=== PATIENT | male | born 1930 | race Caucasian/White ===

== ENCOUNTER → 2017-03-30 10:21 | Outpatient (CLI) | payer MEDICARE, OTHER ==
[2016-09-02 12:18] VITALS: BMI 36.1
[~2017-03-30 10:21] MED LIST: ACETAMINOPHEN500 M1 PO; AMARYL1 MG PO; AMBIEN10 MG; ARAVA10 MG; AZULFIDINE500 MG PO; BAYER CHEWABLE81 MG PO; BREO; BYSTOLIC2.5 MG PO; CARAFATE1 G PO; FLOMAX0.4 MG PO; GLIMEPIRIDE1 MG PO; GLIMEPIRIDE2 MG PO; IPRAT-ALBUT 0.5-3 ML UPD; K-TAB10 MEQ PO; LASIX80 MG PO; LISINOPRIL5 MG PO; LOPRESSOR25 MG PO; PLAQUENIL200 MG PO; PREDNISONE5 MG PO; PROTONIX20 MG PO; SYMBICORT 16010.2 GM INH; ULTRAM ER200 MG PO; Ultram; ZOCOR20 MG PO; [UNRECOGNIZED DRUG - REMARK] PO; [UNRECOGNIZED DRUG - REMARK] PO
== END | disposition home or self-care (01) ==
LOC: D.CT 10:21
DX: I71.4 Abdominal aortic aneurysm, without rupture (principal)

== ENCOUNTER → 2017-10-04 08:14 | Outpatient (CLI) | payer MEDICARE, OTHER ==
[2016-09-02 12:18] VITALS: BMI 36.1
== END | disposition home or self-care (01) ==
LOC: D.US 08:14
DX: I71.4 Abdominal aortic aneurysm, without rupture (principal)

== ENCOUNTER → 2018-04-11 07:24 | Outpatient (CLI) | payer MEDICARE, OTHER ==
[2016-09-02 12:18] VITALS: BMI 36.1
== END | disposition home or self-care (01) ==
LOC: D.US 04-10 14:30
DX: I71.4 Abdominal aortic aneurysm, without rupture (principal)

== ENCOUNTER → 2018-08-01 13:59 | Outpatient (CLI) | payer MEDICARE, OTHER ==
[2016-09-02 12:18] VITALS: BMI 36.1
== END | disposition home or self-care (01) ==
LOC: D.CT 13:59
DX: I71.4 Abdominal aortic aneurysm, without rupture (principal)

== ENCOUNTER 2018-09-05 10:29 | Day surgery (SDC) | payer MEDICARE, OTHER ==
[~2018-09-05] VITALS: Ht 179.1 cm; Wt 116.4 kg
--- NOTE | ~2018-09-05 | OP ---
PATIENT NAME: TY MONTANA MEDICAL RECORD: [id number] :34 [facility] AD[facility] DATE: SURGEON: MOY GIRON MD DATE OF OPERATION: 09/05/2018 PROCEDURE: EGD with biopsy. REFERRING PHYSICIAN: Spencer Draper MD INDICATIONS: Mr. Montana is a delightful 88-year-old gentleman who is referred for further evaluation of anemia. He has history of gastric angioectasias and gastric ulcers. He has been receiving iron infusions on the direction of Dr. Vernon Tejada and has also required blood transfusions. His stools have been Hemoccult negative. His last EGD on 09/02/2016 shows small hiatal hernia; gastric angioectasia, status post ablation; gastritis; and duodenal lipoma (referred for further evaluation of microcytic anemia. He has a history of chronic iron-deficiency anemia). He had a colonoscopy in December 2014 with findings showing colon polyps, mild sigmoid and descending colonic diverticulosis, and mild internal hemorrhoids. He presents for outpatient EGD to further evaluate his anemia. PREMEDICATIONS: Total IV anesthesia (propofol 100 mg); history of coronary artery disease, diabetes mellitus, COPD. INSTRUMENT: Pro V&V video gastroscope. PROCEDURE AND FINDINGS: After receiving informed consent, Mr. Montana's posterior pharynx was anesthetized with Cetacaine spray. He was placed in left lateral decubitus position and sedated as per anesthesia. After achieving adequate level of sedation, gastroscope was introduced per orally and advanced to duodenum without difficulty. The esophageal mucosa was without erythema or ulcers and appeared normal down the GE junction. Small hiatal hernia was noted. Gastric mucosa was notable for a pyloric channel ulcer, which was friable. It had small white base, was semi-circumferential in nature. Antral biopsies were obtained to rule out Helicobacter pylori. No lesions were seen in the body of the stomach nor along the incisura in cardia or fundus. Pylorus was patent and competent. Duodenal mucosa was without erythema or ulcers, appeared normal through the second portion. Biopsies were taken from the second portion of duodenum to rule out celiac disease. Gastroscope was then withdrawn. Mr. Montana tolerated the procedure well. No immediate complications. ASSESSMENT: 1. Small hiatal hernia. 2. Small pyloric channel ulcer, friable, probable source of [id number] anemia. RECOMMENDATIONS: 1. Followup histopathology. 2. Omeprazole 20 mg p.o. b.i.d. 3. Avoid nonsteroidal anti-inflammatory drugs. 4. Followup EGD in 2 months. TRANSINT:[id number] Voice Confirmation ID: [id number] DOCUMENT ID: [id number] OPERATIVE REPORT [id number] TY MONTANA TERRI MD at 1254 CC: SPENCER DRAPER MD, JANINA ORTIZ and SERAFIN TEJADA MD [id number] DICTATION DATE: 09/05/18 1316 MATERIAL CONTROL SUPERVISOR: 09/05/18 1357 [facility] 09/05/18 [facility] [address] [place] [address]
[2018-09-05 10:55] LABS: ANION GAP 13.5 mmol/L (8-16); CALCIUM 8.7 mg/dL (8.5-10.1); CARBON DIOXIDE 29.4 mmol/L (21.0-32.0); CREATININE - SERUM 1.3 mg/dL (0.6-1.3); POTASSIUM - SERUM 4.9 mmol/L (3.5-5.1)
[2018-09-05 11:03] LABS: HEMATOCRIT 31.9 % (42.0-54.0); MCH 30.9 pg (26.0-34.0); MCHC 31.3 g/dL (31.0-37.0); MCV 98.5 fL (80.0-100.0); MEAN PLATELET VOLUME 9.2 fL (7.4-10.4); RBC 3.24 10x6/uL (4.20-6.10); RDW 14.7 % (11.5-14.5); WBC 6.9 10x3/uL (4.8-10.8)
[2018-09-05] MEDS ORDERED: MELATONIN 3 MG1 TAB PO (11:37)
[2018-09-05 12:02] VITALS: BP 142/80; Ht 179.1 cm; Wt 116.4 kg
== END 2018-09-05 14:11 | disposition home or self-care (01) ==
LOC: D.OPS 10:29
PROVIDERS: Anesthesiology
DX: D64.9 Anemia, unspecified (principal); K25.9 Gastric ulcer, unspecified as acute or chronic, without hemorrhage or perforation

== ENCOUNTER 2018-10-27 10:06 | Day surgery (SDC) | payer MEDICARE, OTHER ==
[2018-10-27 10:36] LABS: BASOPHILS 0.3 % (0-2); EOSINOPHILS 4.1 % (0-7); HEMATOCRIT 30.6 % (42.0-54.0); HEMOGLOBIN 9.5 g/dL (13.5-17.5); IMMATURE GRANULOCYTES 0.2 % (0-5); LYMPHOCYTES 17.7 % (15-50); MEAN PLATELET VOLUME 8.9 fL (7.4-10.4); MONOCYTES 11.2 % (2-11); NEUTROPHILS 66.5 % (40-80); PLATELET COUNT 184 10x3/uL (130-400); RBC 3.06 10x6/uL (4.20-6.10); RDW 13.9 % (11.5-14.5); WBC 5.9 10x3/uL (4.8-10.8)
[2018-10-27 10:43] LABS: ALBUMIN 3.1 g/dL (3.4-5.0); ALKALINE PHOSPHATASE 52 U/L (46-116); ALT (SGPT) 20 U/L (10-68); BILIRUBIN - TOTAL 0.19 mg/dL (0.2-1.3); CALC OSMOLALITY 276 mosm/kg (275-300); CALCIUM 8.4 mg/dL (8.5-10.1); CARBON DIOXIDE 33.2 mmol/L (21.0-32.0); CHLORIDE - SERUM 101 mmol/L (98-107); GLUCOSE 100 mg/dL (74-106); POTASSIUM - SERUM 4.9 mmol/L (3.5-5.1); PROTEIN - SERUM 7.1 g/dL (6.4-8.2); SODIUM 138 mmol/L (136-145); UREA NITROGEN 15 mg/dL (7-18); eGFR NON AFRICAN AMERICAN 75 mL/min (90-120)
== END 2018-10-27 16:00 | disposition home or self-care (01) ==
LOC: D.OPS 10:06
PROVIDERS: Internal Medicine Gastroenterology
DX: K44.9 Diaphragmatic hernia without obstruction or gangrene (principal); K29.70 Gastritis, unspecified, without bleeding; K57.30 Diverticulosis of large intestine without perforation or abscess without bleeding; D12.2 Benign neoplasm of ascending colon; D12.3 Benign neoplasm of transverse colon; I71.4 Abdominal aortic aneurysm, without rupture; D50.9 Iron deficiency anemia, unspecified; I25.10 Atherosclerotic heart disease of native coronary artery without angina pectoris; J44.9 Chronic obstructive pulmonary disease, unspecified; E11.9 Type 2 diabetes mellitus without complications; Z01.812 Encounter for preprocedural laboratory examination

== ENCOUNTER → 2018-11-22 07:25 | Outpatient (CLI) | payer MEDICARE, OTHER ==
[2018-10-27 11:08] VITALS: BMI 36.3
[~2018-11-22 07:25] MED LIST changes: +BREO ELLIPTA 11 EACH INH; +MELATONIN 3 MG1 TAB PO; +ULTRAM50 MG PO
== END | disposition home or self-care (01) ==
LOC: D.RAD 11-02 10:00
DX: D50.9 Iron deficiency anemia, unspecified (principal); R19.7 Diarrhea, unspecified

== ENCOUNTER → 2018-12-26 13:20 | Outpatient (CLI) | payer MEDICARE, OTHER ==
[2018-10-27 11:08] VITALS: BMI 36.3
[~2018-12-26 13:20] MED LIST changes: +ASPIRIN EC81 M1 PO
== END | disposition home or self-care (01) ==
LOC: D.RT 13:20
DX: I71.4 Abdominal aortic aneurysm, without rupture (principal)

== ENCOUNTER 2019-01-02 12:49 | Inpatient (IN) | payer MEDICARE, OTHER ==
[~2019-01-02] VITALS: Ht 179.1 cm; Wt 113.4 kg
[~2019-01-02 12:49] MED LIST changes: -ASPIRIN EC81 M1 PO
[2019-01-04 14:44] LABS: INR 1.06 (0.85-1.17); PROTIME 13.3 SECONDS (11.6-15.0)
[2019-01-04 14:50] LABS: BASOPHILS 0.3 % (0-2); EOSINOPHILS 2.9 % (0-7); HEMATOCRIT 30.2 % (42.0-54.0); HEMOGLOBIN 9.6 g/dL (13.5-17.5); IMMATURE GRANULOCYTES 0.2 % (0-5); LYMPHOCYTES 27.8 % (15-50); MCH 30.2 pg (26.0-34.0); MCHC 31.8 g/dL (31.0-37.0); MEAN PLATELET VOLUME 9.3 fL (7.4-10.4); MONOCYTES 11.3 % (2-11); NEUTROPHILS 57.5 % (40-80); PLATELET COUNT 184 10x3/uL (130-400); RBC 3.18 10x6/uL (4.20-6.10); RDW 13.1 % (11.5-14.5); WBC 5.9 10x3/uL (4.8-10.8)
[2019-01-04 14:53] LABS: ALBUMIN 3.2 g/dL (3.4-5.0); ANION GAP 10.1 mmol/L (8-16); BILIRUBIN - TOTAL 0.15 mg/dL (0.2-1.3); CARBON DIOXIDE 30.2 mmol/L (21.0-32.0); CREATININE - SERUM 1.3 mg/dL (0.6-1.3); POTASSIUM - SERUM 5.3 mmol/L (3.5-5.1); PROTEIN - SERUM 6.6 g/dL (6.4-8.2)
[2019-01-04 15:22] LABS: APPEARANCE CLEAR (CLEAR); BILIRUBIN NEGATIVE (NEGATIVE); COLOR YELLOW (YELLOW); GLUCOSE NEGATIVE (NEGATIVE); KETONE NEGATIVE (NEGATIVE); NITRITE NEGATIVE (NEGATIVE); PROTEIN TRACE mg/dL (NEGATIVE); UROBILINOGEN NORMAL (NORMAL)
[2019-01-04 15:23] LABS: RED CELLS - URINE 0-5 /hpf (0-5); WHITE CELLS - URINE 0-5 /hpf (0-5)
[2019-01-04 15:24] LABS: AMORPHOUS SEDIMENT <1+ /lpf (NONE SEEN); EPITHELIAL CELLS 0-5 /hpf (0-5); GRANULAR CAST RARE /lpf (NONE SEEN); MUCUS <1+ /lpf (NONE SEEN)
[2019-01-08] VITALS (51 sets, daily range): BP systolic 108–161; BP diastolic 43–513; BMI 35.4
--- NOTE | 2019-01-08 13:11 | NUR ---
1135 PT ARRIVED TO ROOM FROM OR, PLACED ON VENT BY RT, ETT 8.0 AT 24 AT LIP, PLACED ON MONITORING EQUIPMENT AND ALARMS SET, L SUBCLAVIAN CVL DRESSING CDI WITH NS RATE CHANGED TO 75ML/HR, INITIATED NITRO TITRATED TO BP, BEGAN CLEVIPREX WHEN NITRO 30ML/HR THEN BEGAN TO WEAN NITRO, SEE IV FLOWSHEET FOR CURRENT RATED, R GROIN AND LEFT UUPPER GROIN INCISION SITES CDI,S OFT TO PALPATE, NO SIGNS OF BLEEDING, L RADIAL A LINE ZEROED, GOOD WAVEFORM, WRIST PROTECTOR IN PLACE, CRITICORE DRAINING ELMO URINE, WRIST RESTRAINTS PLACED UPON ARRIVAL, HR IRREGULAR AFTER CXR, UP TO 200 SINUS TACH, THEN AGAIN INTERMITTENLY, DR ORTIZ AWWARE, AFTER CONTINUED TACHYCARDIA, EKG DONE AND CONFIRMED SINUS TACH WITH R BBB, NOTIFIED DR MAHONEY NURSE NAVI WITH NO NEW ORDERS, PT AWAKE AND ABLE TO FOLLOW COMMANDS NO NEEDS NOTED, CONTINUES 1:1 AT THIS TIME
--- NOTE | 2019-01-08 14:10 | NUR ---
HR CONTINUING TO BE IRREGULAR, SUSTAINS IN 100-120 BUT ELEVATING HIGH 220, NO SIGNS OF BLEEDING, SITES SOFT, PULSES PALPABLE, PT CONTINUALLY GESTURING TO ETT AND AGITATED ABOUT ITS REMOVAL, DR MAHONEY NURSE PATRICK NOTIFIED
--- NOTE | 2019-01-08 15:26 | NUR ---
CALLED DR ORTIZ AND NOTIFIED OF ABGS, NIF,VITAL, ORDERS TO EXTUBATE PER PROTOCOL, EXTUBATED BY RT AND WRIST RESTRAINTS REMOVED 151, AIRPORT DRIVER INITIATED AND EDUCATED PT ON HOW TO USE, INSTRUCTED ON COUGH/DEEP BREATHING WELL
--- NOTE | 2019-01-08 17:06 | NUR ---
PT COMPLAINING OF "UNBEARABLE" BACK PAIN, STATES HE HAS CHRONIC BACK PAIN, SPOKE WITH DR ORTIZ AND NEW ORDERS FOR TORADOL AND TRAMADOL
--- NOTE | 2019-01-08 18:00 | NUR ---
REPORT GIVEN TO SYLVIA MANDEL
--- NOTE | 2019-01-08 19:00 | NUR ---
Shift assessment complete. Pt is A&O x4, PERRLA, 3 mm, brisk reaction to light. He states that he is having 8/10 back pain that feels dull, chronic issue. Repositioned for comfort, massage to L lumbar region. Elevated ext on pillows. S1S2 audible, HR 106 sinus tach showing on monitor, tight parameters set. RR even and unlabored, clear breath sounds heard bilat throughout all lobes. NC on @ 3 L/min. ABD round and distended, soft to touch, no pain or tenderness. BS active x4. Criticore intact, stat lock placed on L leg. B/L groin dressings CDI, no signs of bleeding noted, soft to palpation. L A-line zeroed, good wave form showing on monitor. CVP zeroed, reading is 7. L subclavian CVL infusing NS @ 75 ml/hr, increased Cleviprex to 12 mg/hr due to SBP 151-160, Nitro gtt @ 43.33 mcg/min (13 ml/hr), Morphine POWER LINE INSTALLER, button in hand, education provided. IS use x10, maximal effort, 500. Instructed pt to use IS on every commercial, he stated that he understood. Call light in reach, bed in lowest position, he denies any further needs at this time. Will cont close observation from nurse's station.
--- NOTE | 2019-01-08 19:20 | NUR ---
Pt able to eat all of Jello with no signs of difficulty. Tolerating clear liquids.
--- NOTE | 2019-01-08 21:00 | NUR ---
Pt states that he has 8/10 back pain. Admin Toradol. Repositioned for comfort. VSS. on phone, password provided. Updated and answered all questions. OPERATIONAL METEOROLOGIST button and call light in reach, will cont with POC.
--- NOTE | 2019-01-08 23:00 | NUR ---
Reassessment complete. Pedal pulses palp. B/L groin dressings CDI, soft to palpation. Partial linen change provided, partial bed bath given. Pt tolerated well. Decreased Cleviprex per titration orders. RR even and unlabored, O2 sat 95%. IS use x10, 500 best effort. ESCAPEMENT MAKER and call light in reach, will cont with POC.
[2019-01-09] VITALS (57 sets, daily range): BP systolic 107–161; BP diastolic 38–75; Ht 179.1 cm; Wt 113.4 kg
--- NOTE | 2019-01-09 01:00 | NUR ---
Massage given to L lumbar region. Repositioned for comfort. VSS. Titrating Cleviprex per orders. WIRE STRETCHER button in reach. Bed alarm on, call light in reach.
--- NOTE | 2019-01-09 03:00 | NUR ---
Reassessment complete. VSS. Dressings to bilat groin are intact, no indication of hematoma formation or bleeding. Pedal pulses palp. Repositioned for comfort. Pt states that he is still having back pain. Admin PRN pain medication. Will cont to monitor closely.
--- NOTE | 2019-01-09 05:00 | NUR ---
Complete linen change provided. Bridged heels, SCDs on. VSS. Pt tolerated well. Will cont with POC.
--- NOTE | 2019-01-09 06:00 | NUR ---
SBP increased at this time. Titrating gtts as needed. Will cont to assess closely.
[2019-01-09 06:31] LABS: HEMOGLOBIN 9.2 g/dL (13.5-17.5); MCH 29.7 pg (26.0-34.0); MCHC 31.7 g/dL (31.0-37.0); MCV 93.5 fL (80.0-100.0); MEAN PLATELET VOLUME 9.3 fL (7.4-10.4); RBC 3.1 10x6/uL (4.20-6.10); RDW 14.5 % (11.5-14.5); WBC 10.2 10x3/uL (4.8-10.8)
--- NOTE | 2019-01-09 07:00 | NUR ---
REPORT RECIEVED FROM THE OFF GOING RN. SEE ASSESSMENT IN THE PTS FLOW SHEET. PT A&OX4. PT IN HIS BED. NORMAL SINUS-SINUS TACH 90-110 NOTED. LEFT SUBCLAVIAN CVL NOTED. SEE IV FLOW SHEET FOR DRUGS AND RATES. LEFT RADIAL MANUEL NOTED. DRESSING C/D/I. WRIST PROTECTOR ON. CAP REFILL <3 SECONDS. BILATERAL GROIN DRESSING C/D/I. SOFT TO PALPATATION. NO HEMATOMA NOTED. BILATEARL PULSES PALPABLE. WARM FEET WIITH <3 SECOND CAP REFILL. PT COMPLAINS OF LOWER BACK PAIN. PT HAS A HX OF CHRONIC BACK PAIN. "MY BACK IS KILLING ME. I HAVE BEEN LYING HERE AND I NORMAL MOVE AROUND FOR MY BACK. CAN I GET OOB?" DR DIANA BRIGHT. DR ORTIZ OK FOR THE PT TO GET OOB.
[2019-01-09 07:07] LABS: ANION GAP 12.2 mmol/L (8-16); CARBON DIOXIDE 26.3 mmol/L (21.0-32.0); CREATININE - SERUM 1.2 mg/dL (0.6-1.3); POTASSIUM - SERUM 4.5 mmol/L (3.5-5.1)
--- NOTE | 2019-01-09 08:00 | NUR ---
PT ASSISTED OOB AND INTO HIS BEDSIDE CHAIR. PT WEAK BUT TOLERATED TRANSFER WELL. PT STATED THAT HE USES A WALKER AT HOME. PT STATED THAT HIS BACK IMMIDIATLY FEELS BETTER. NO COMPLAINTS OF PAIN AT THIS TIME. BREAKFAST TRAY PROVIDED FOR THE PT. CALL LIGHT IN REACH. WILL CONT POC.
--- NOTE | 2019-01-09 08:29 | NUR ---
CLEVIPREX AND NITRO TITRATED DOWN FOR BP. CLEVIPREX OFF. SEE IV FLOW SHEET.
--- NOTE | 2019-01-09 10:58 | NUR ---
10 CC REMOVED FROM FC BULB AND THE CATHETER WAS DC'D PER ORDERS. URINAL PROVIDED AND INSTRUCTED TO REPORT URINARY RETENTION. MANUEL DC'D PER ORDERS. CATH TIP INTACT. DRESSING APPLIED. PT TOLERATED WELL. WILL CONT POC.
--- NOTE | 2019-01-09 11:00 | NUR ---
NITRO AND CLIVIPREX DC'D. VSS AT THIS TIME. WILL CONT POC.
--- NOTE | 2019-01-09 11:08 | NUR ---
WIRE FRAME MAKER DISCONTIUNED WITH 5ML REMAINING. WASTED IN THE SINK WITH PAOLO RN A WITTNESS.
--- NOTE | 2019-01-09 13:36 | OP ---
PATIENT NAME: TY SAUNDERS MEDICAL RECORD: [id number] :34 LOCATION:[facility] ADMISSION DATE:01/08/19 SURGEON: GENE CHAVARRIA MD DATE OF OPERATION: 01/08/2019 OSS ARCHITECT NOTE PROCEDURE NOTE OSS ARCHITECT SURGEON: Gene Chavarria MD I participated in the placement of the bifurcated main body and each limb extension. Both femoral arteries were repaired primarily with a small localized 1-2 mm dissection utilizing interrupted 6-0 Prolene with resultant good flow and good hemostasis, both groins irrigated thoroughly with antibiotic irrigation and closed in 3 layers including subcuticular and Dermabond. Doppler dorsalis pedis and posterior tibial pulses in operating room. TRANSINT:[id number] Voice Confirmation ID: [id number] DOCUMENT ID: [id number] GENE CHAVARRIA MD at 1336 CC: [id number] DICTATION DATE: 01/08/19 1624 DURABLE MEDICAL EQUIPMENT REPAIRER: 01/08/19 2224 ADM IN [facility] [address] [place] [id number]
--- NOTE | 2019-01-09 13:56 | NUR ---
UP IN CHAIR AT THIS TIME. NO ACUTE DISTRESS NOTED. EYES CLOSED, AWAKENS EASILY WHEN SPOKEN TO. WILL CONTINUE PLAN OF CARE.
--- NOTE | 2019-01-09 14:24 | NUR ---
PT STOOD UP WITH PHYSICAL THERAPY AT THIS TIME, NOTED INCONTINENT VERY SMALL BOWEL MOVEMENT - LIQUID BROWN, AND SMALL AMOUNT VOID TO GROUND. ALSO NOTED 75ML URINE IN TO URINAL. PT CLEANED UP AT THIS TIME, JANIE CARE PROVIDED, PARTIAL LINEN CHANGE PROVIDED. NO ACUTE DISTRESS NOTED. WILL CONTINUE PLAN OF CARE.
--- NOTE | 2019-01-09 15:16 | NUR ---
[facility] CONFIRMED WITH PT AND PTS STATING THAT IS THE PHARMACY WHICH THEY USE.
--- NOTE | 2019-01-09 17:10 | NUR ---
UP IN CHAIR BESIDE BED EATING SUPPER AT THIS TIME. NO ACUTE DISTRESS NOTED. PT COMPLAINT OF SORE THROAT, CURRENTLY RECIVEDING LOZENGE PRN FOR SORE THROAT WELL PRN ULTRAM FOR DISCOMFORT. CALL LIGHT IN REACH. WILL CONTINUE PLAN OF CARE.
--- NOTE | 2019-01-09 18:04 | NUR ---
PT ASSISTED BACK TO BED. NOTED INCONTINENT VOID BEFORE TRANSFERRING, JANIE CARE PROVIDED ALONG WITH PARTIAL LINEN CHANGE. PT TRASNFERRED VIA MAX X 2 PERSON ASSIST. PT LYING IN BED WATCHING TV AT THIS TIME. NO ACUTE DISTRESS NOTED. WILL CONTINUE PLAN OF CARE.
--- NOTE | 2019-01-09 18:25 | NUR ---
TEMP 101.0 DR ORTIZ NOTIFIED OF THIS, STATED TO KEEP HAVING PT USE THE IS. PT CURRNTLY PULLING AT 500 ON IS. WILL CONTINUE TO QHR ENCOURAGE PT TO USE IS. WILL CONTINUE PLAN OF CARE.
--- NOTE | 2019-01-09 19:00 | NUR ---
Shift assessment complete. Pt is A&O x4, he states that his throat is sore and hurting, lozenge is on his gown. Complete linen change provided. S1S2 audible, HR 110, sinus tach. RR even and unlabored, clear lung sounds heard bilat through most lobes, diminished at bases. O2 sat 99%, NC on @ 2 L/min. ABD round and soft to touch, BS active x4. L subclavian CVL S/L. L radial dressing CDI. L&R groin dressings CDI, soft to palpation, no signs of bleeding noted. Radial and pedal pulses palp, pt states he has good sensation in all ext. Repositioned for comfort. IS use x10 with weak effort. Educated pt on the benefits of performing the exericse with good effort. He stated that he understands, best pulled 450. Call light in reach, bed alarm on, pt is in sight of nurse's station. Tight parameters set on ICU monitor. Will cont with POC.
--- NOTE | 2019-01-09 19:07 | MORECARE ---
CASE MANAGEMENT DISCHARGE SUMMARY PATIENT: TY SAUNDERS UNIT: [id number] ADM DATE: 01/08/19 AGE: 88 : 32 SEX: M [facility] AUTHOR: MEG JANE PHYSICIAN: REFERRING PHYSICIAN: JANINA ORTIZ MD DATE OF SERVICE: 01/09/19 Discharge Plan Patient Name: [facility]Y SAUNDERS [facility] [facility] 1930 Planned Disposition: Home Anticipated Discharge Date: Discharge Date: Expected LOS: Initial Reviewer: [email or web address] Initial Review Date: 01/09/2019 Generated: 01/09/19 8:06 pm DCPIA - Discharge Planning Initial Assessment Updated by [id number]: Joselin Lam on 01/09/19 7:03 pm * Is the patient Alert and Oriented? Yes * How many steps to enter\exit or inside your home? * PCP SVETA PANTOJA * Pharmacy [facility] * Preadmission Environment Home with Family * ADLs Independent * Other Equipment WALKER WITH SEAT, LIFT CHAIR, HANDBAR IN SHOWER * List name and contact numbers for known caregivers / representatives who currently or will assist patient after discharge: DIANA SAUNDERS - SPOUSE- [phone], * Verbal permission to speak to the caregivers and representatives has been obtained from the patient. Yes * Community resources currently utilized None * Additional services required to return to the preadmission environment? No * Can the patient safely return to the preadmission environment? Yes * Has this patient been hospitalized within the prior 30 days at any hospital? No Patient Name: TY SAUNDERS Page [phone] at 1907 All edits/amendments must be made on the electronic document DICTATION DATE: 01/09/191905 CABLE HOOKER: BRETT 01/09/191905 RPT#: [id number] DC DATE: STATUS: ADM IN [facility] [address] [place] [address] END OF REPORT
--- NOTE | 2019-01-09 19:13 | MORECARE ---
CASE MANAGEMENT DISCHARGE SUMMARY PATIENT: TY SAUNDERS UNIT: [id number] ADM DATE: 01/08/19 AGE: 88 : 32 SEX: M ROOM/BED: D.[facility] AUTHOR: LUCINDA,DOC PHYSICIAN: REFERRING PHYSICIAN: JANINA ORTIZ MD DATE OF SERVICE: 01/09/19 Discharge Plan Patient Name: TY SAUNDERS Facility: [facility]:[place] : 1930 Planned Disposition: Home Anticipated Discharge Date: Discharge Date: Expected LOS: Initial Reviewer: [email or web address] Initial Review Date: 01/09/2019 Generated: 01/09/19 8:13 pm Comments DCP- Discharge Planning Updated by [email or web address]: Joselin Lam on 01/09/19 6:[address] Patient Name: TY SAUNDERS Admission Status: Elective Accout number: [id number] Admission Date: 01-08-2019 : 1930 Admission Diagnosis: Attending: JANINA ORTIZ Current LOS: 1 Anticipated DC Date: Planned Disposition: Home Primary Insurance: MEDICARE A & B Discharge Planning Comments: CM met with patient and spouse at bedside. Patient states he lives at home with his Savanah. Patient plans to return to his home upon discharge. Spouse states he has a walker, lift chair and grab bars in bathroom. He also denies any HH services prior to admission. Patient denies any discharge needs at this time. Patient may need walk test if still requiring 02. CM will continue to follow and assist as needed with discharge planning / needs. General Intern: Joselin Lam DCPIA - Discharge Planning Initial Assessment Updated by [email or web address]: Joselin Lam on 01/09/19 7:03 pm * Is the patient Alert and Oriented? Yes * How many steps to enter\exit or inside your home? * PCP SVETA PANTOJA * Pharmacy [facility] * Preadmission Environment Home with Family * ADLs Independent * Other Equipment WALKER WITH SEAT, LIFT CHAIR, HANDBAR IN SHOWER * List name and contact numbers for known caregivers / representatives who currently or will assist patient after discharge: SAVANAH SAUNDERS - SPOUSE- [phone], * Verbal permission to speak to the caregivers and representatives has been obtained from the patient. Yes * Community resources currently utilized None * Additional services required to return to the preadmission environment? No * Can the patient safely return to the preadmission environment? Yes * Has this patient been hospitalized within the prior 30 days at any hospital? No Last DP export: 01/09/19 6:07 p Patient Name: TY SAUNDERS Page [id number] at 1913 All edits/amendments must be made on the electronic document DICTATION DATE: 01/09/191912 CAR RENTAL SERVICE ATTENDANT: BRETT 01/09/191912 RPT#: [id number] DC DATE: STATUS: ADM IN [facility] [address] [place] [address] END OF REPORT
--- NOTE | 2019-01-09 20:15 | NUR ---
FSBS 119, no insulin admin per sliding scale.
--- NOTE | 2019-01-09 20:45 | NUR ---
Pt's called, password given. All questions answered.
--- NOTE | 2019-01-09 21:00 | NUR ---
PO meds taken, he states his throat is sore. Gave lozenge. Partial linen change provided, clear yellow urine noted on pink pad. IS use x10 with better effort, 500 was best effort.
--- NOTE | 2019-01-09 23:00 | NUR ---
Reassessment complete. IS use x10, good effort, max volume was 500. B/L groin dressings CDI, no signs of bleeding noted, soft to palpation. VSS. Call light in reach, repositioned for comfort. 100 ml clear yellow urine emptied from urinal. No further changes. Will cont with POC.
[2019-01-10] VITALS (25 sets, daily range): BP systolic 105–153; BP diastolic 34–77
--- NOTE | 2019-01-10 01:00 | NUR ---
IS use, weak effort. Instructed pt to give good efforts each time he does the exercise. He states that he understands. Repositioned for comfort. Call light in reach, bed in lowest position. Will cont with POC.
--- NOTE | 2019-01-10 03:00 | NUR ---
Reassessment complete. Pt states is not performing things independently. Educated him that performing ADLs is important to do independently. He stated that he understood. B/L groin dressings intact, no bleeding noted, soft to palpation. VSS. IS use x10, good effort. Call light in reach, bed in lowest position. Will cont with POC.
--- NOTE | 2019-01-10 04:00 | NUR ---
Pt states that he is having ear and back pain and that his throat is hurting him. PRN pain medical pathology teacher, lozenge admin. Repositioned for comfort. Will cont to monitor closely.
--- NOTE | 2019-01-10 05:00 | NUR ---
IS use, good effort. 500 max volume. He states that he is still having ear pain. Assessed ear, seems WNL. Repositioned for comfort. Call light in reach, bed in lowest position. Will cont with POC.
--- NOTE | 2019-01-10 06:50 | NUR ---
Complete linen change provided. Moderate amount of clear yellow urine on gown and pink pad. Pt able to help turn. No further needs. Will cont with POC.
--- NOTE | 2019-01-10 08:29 | NUR ---
PT CURRENTLY UP ON TO BEDSIDE COMMODE. WANTED A BEDPAN FOR HIS CHAIR BECAUSE HE SAID HE COULDN'T MAKE IT TO THE TOILET. BROUGHT COMMODE OVER. PT TRANSFERED SELF TO COMMODE. HAS DIARRHEA. PT WAS ALSO CLEANED UP FROM LOOSE STOOL AT START OF SHIFT WHILE WAS STILL IN BED. PT STATES HE HAS BEEN HAVING DIARRHEA SINCE "THEY GAVE ME THAT LIQUID TO CLEAN ME OUT ON TUESDAY"
--- NOTE | 2019-01-10 12:00 | NUR ---
LUNCH TRAY PROVIDED TO PATIENT. AT BEDSIDE AT THIS TIME.
--- NOTE | 2019-01-10 14:30 | NUR ---
PT SLEEPING IN CHAIR AT BEDSIDE. NO DISTRESS.
--- NOTE | 2019-01-10 16:21 | NUR ---
LEAVING FOR THE DAY. ASKS THAT PT NOT BE GIVEN PERCOCET AGAIN FOR PAIN. PT HAS BEEN SLEEPING MOST OF THE DAY AND SHE DOES NOT FEEL THAT HE SHOULD BE THIS TIRED. ASKS THAT HE GET TRAMADOL IF NEEDS SOMETHING FOR PAIN.
--- NOTE | 2019-01-10 18:00 | NUR ---
CENTRAL LINE DRESSING CHANGED PER PROTOCOL.
--- NOTE | 2019-01-10 18:24 | NUR ---
PT CALLED UPSET THAT SHE INSTRUCTED NOT TO GIVE PERCOCET. SHE CALLED UP TO NURSE UNIT AND ASKED THAT HE PLEASE BE GIVEN A DOSE AT BEDTIME SO THAT HE CAN REST FOR THE NIGHT. DID REQUEST THAT HE NOT BE SENT HOME WITH PRESCRIPTION FOR PERCOCET BECAUSE SHE DOES NOT FEEL SHE WILL BE ABLE TO GET HIM TO PERFORM ADLs IF HE IS TOO SEDATE.
--- NOTE | 2019-01-10 19:00 | NUR ---
Shift assessment complete. Pt is in good spirits and is excited to go home tomorrow. A&O x4, he does not complain of any pain or discomfort at this time. He is sitting up in bed wearing his glasses and watching TV. His speech is clear and he states that his throat is, "100% better." S1S2 audible, HR 106, sinus tach. RR even and unlabored, clear lung sounds throughout upper and middle lobes, diminished bases. NC on with humidified O2 @ 2 L/min, O2 sat 99%. ABD soft and nontender to touch, BS active x4. B/L groin dressings CDI, soft to palpation, no signs of bleeding noted. L radial dressing CDI. Radial and pedal pulses palp. New non-skid socks provided. Repositioned for comfort. Refreshments brought to bedside. Call light in reach, bed in lowest position. Will cont with POC.
--- NOTE | 2019-01-10 20:00 | NUR ---
FSBS 274, 4 un insulin admin per protocol.
--- NOTE | 2019-01-10 21:00 | NUR ---
Pt states that he is having 8/10 back pain. PRN Percocet-5 admin per request. PM meds taken without difficulty. Pt has had multiple episodes of diarrhea today, held Senna. Repositioned for comfort. VSS. IS use x10, 500 volume best effort. Will cont to encourage IS use.
--- NOTE | 2019-01-10 21:35 | NUR ---
Pt resting peacefully on his R side. No S/S of pain or discomfort. Will cont to assess pain frequently.
--- NOTE | 2019-01-10 23:00 | NUR ---
Assisted pt to chair. Gait steady. Complete linen change provided. Pt states that he would like to sit in the chair for the rest of the night. VSS. No changes in pt condition. IS use x10, good effort. Will cont with POC.
[2019-01-11] VITALS (10 sets, daily range): BP systolic 109–147; BP diastolic 40–52
--- NOTE | 2019-01-11 01:00 | NUR ---
Assisted pt to bathroom, x1 assist + walker. Small BM noted, 200 mL clear yellow urine collected in urinal. Pt back in chair. No further needs. He is in good spirits. VSS. Will cont with POC. Call light in reach.
--- NOTE | 2019-01-11 02:10 | NUR ---
Pt states that he has 6/10 back pain. Requested Percocet. Admin per request. VSS. Will cont to monitor closely.
--- NOTE | 2019-01-11 03:00 | NUR ---
Pt sitting up in chair. Reassessment complete. No changes in pt condition. VSS. See flowsheet for further details. Will cont to monitor closely. Call light in reach.
--- NOTE | 2019-01-11 04:00 | NUR ---
FSBS 95. No insulin required.
--- NOTE | 2019-01-11 05:00 | NUR ---
Complete bed bath given. Assisted pt down to x-ray. Pt tolerated well. VSS. Call light in reach, will cont with POC.
[2019-01-11 06:47] LABS: HEMATOCRIT 30.7 % (42.0-54.0); HEMOGLOBIN 9.6 g/dL (13.5-17.5); MCH 29.8 pg (26.0-34.0); MCHC 31.3 g/dL (31.0-37.0); MCV 95.3 fL (80.0-100.0); MEAN PLATELET VOLUME 9.7 fL (7.4-10.4); RBC 3.22 10x6/uL (4.20-6.10); RDW 14.1 % (11.5-14.5); WBC 9.8 10x3/uL (4.8-10.8)
--- NOTE | 2019-01-11 07:00 | NUR ---
REPORT RECEIVED FROM THE OFF GOING RN. SEE ASSESSMENT IN THE PTS FLOW SHEET. PT SITTING UPRIGHT IN HIS BEDSIDE CHAIR. SINUS TACH 110 NOTED. PT ON 2L VIA NC. NO COMPAINTS AT THIS TIME. DRESSING NOTED TO BILAT GROIN. DRESSING C/D/I. SOFT TO PALPATION. BRUSING NOTED. BILATERAL DP AND PT PULES PALPABLE. BLE WARM AND WNL. PT INSTRUCTED TO USE HIS IS 10/H OR ONCE A COMERCIAL WHILE WATCHING TV. PT PULLS ABOUT 500 TO 750 ON HIS IS. BREAKFAST TRAY PROVIDED FOR THE PT. CALL LIGHT IN REACH. WILL CONT POC.
[2019-01-11 07:09] LABS: ALBUMIN 2.4 g/dL (3.4-5.0); ANION GAP 13.3 mmol/L (8-16); BILIRUBIN - TOTAL 0.31 mg/dL (0.2-1.3); CALCIUM 7.2 mg/dL (8.5-10.1); CARBON DIOXIDE 27.4 mmol/L (21.0-32.0); CREATININE - SERUM 1.3 mg/dL (0.6-1.3); PROTEIN - SERUM 6.5 g/dL (6.4-8.2)
[2019-01-11 07:11] LABS: POTASSIUM - SERUM 3.7 mmol/L (3.5-5.1)
--- NOTE | 2019-01-11 08:30 | NUR ---
PT AMBULATED WITH THE ASSISTANCE FROM PHYSCIAL THEARPY WITH HIS PERSONAL ROLLING WALKER. PT HAD A SLOW SHUFFLELING GAIT. ONLY AMBULATED ABOUT 20-30 FEET BEFORE HE WENT BACK TO HIS ROOM. VSS. CALL LIGHT IN REACH. WILL CONT POC.
--- NOTE | 2019-01-11 09:49 | NUR ---
Nutrition Follow Up: Chart reviewed Diet: ADA PO Intake: 55% meal avg - improving BM: 01/11/19 I>O Wt stable Labs reviewed Meds noted including Lasix, Reglan Rec continue current diet. RD following.
[2019-01-11] MEDS ORDERED: ASPIRIN EC81 M1 PO (09:55)
--- NOTE | 2019-01-11 09:55 | NUR ---
DR ORTIZ AT THE PTS BEDSIDE. OK TO RI HOME.
--- NOTE | 2019-01-11 10:53 | NUR ---
CASE MANAGEMENT IN A MEETING. DISCHARGE PENDING PER CASE MANAGEMENT.
--- NOTE | 2019-01-11 12:23 | MORECARE ---
CASE MANAGEMENT DISCHARGE SUMMARY PATIENT: TY SAUNDERS UNIT: [id number] ADM DATE: 01/08/19 AGE: 88 : 32 SEX: M ROOM/BED: D[facility] AUTHOR: LUCINDA,DOC PHYSICIAN: REFERRING PHYSICIAN: JANINA ORTIZ MD DATE OF SERVICE: 01/11/19 Discharge Plan Patient Name: TY SAUNDERS Facility: [facility]:[place] : 1930 Planned Disposition: Home Anticipated Discharge Date: Discharge Date: Expected LOS: Initial Reviewer: [email or web address] Initial Review Date: 01/09/2019 Generated: 01/11/19 1:23 pm Comments DCP- Discharge Planning Updated by [email or web address]: Joselin Lam on 01/09/19 6:[address] Patient Name: TY SAUNDERS Admission Status: Elective Accout number: [id number] Admission Date: 01-08-2019 : 1930 Admission Diagnosis: Attending: JANINA ORTIZ Current LOS: 1 Anticipated DC Date: Planned Disposition: Home Primary Insurance: MEDICARE A & B Discharge Planning Comments: CM met with patient and spouse at bedside. Patient states he lives at home with his Savanah. Patient plans to return to his home upon discharge. Spouse states he has a walker, lift chair and grab bars in bathroom. He also denies any HH services prior to admission. Patient denies any discharge needs at this time. Patient may need walk test if still requiring 02. CM will continue to follow and assist as needed with discharge planning / needs. Hair Clipper Power: Joselin Lam DCPIA - Discharge Planning Initial Assessment Updated by [id number]: Joselin Lam on 01/09/19 7:03 pm * Is the patient Alert and Oriented? Yes * How many steps to enter\exit or inside your home? * PCP SVETA PANTOJA * Pharmacy [facility] * Preadmission Environment Home with Family * ADLs Independent * Other Equipment WALKER WITH SEAT, LIFT CHAIR, HANDBAR IN SHOWER * List name and contact numbers for known caregivers / representatives who currently or will assist patient after discharge: SAVANAH SAUNDERS - SPOUSE- [phone], * Verbal permission to speak to the caregivers and representatives has been obtained from the patient. Yes * Community resources currently utilized None * Additional services required to return to the preadmission environment? No * Can the patient safely return to the preadmission environment? Yes * Has this patient been hospitalized within the prior 30 days at any hospital? No External [facility]iders [facility] Next Contact Date: Service Request Date: Service Type: Resolution: Reviewer: Comments: Last DP export: 01/09/19 6:13 p Patient Name: TY SAUNDERS Page 69368 at 1223 All edits/amendments must be made on the electronic document DICTATION DATE: 01/11/19 1223 ROVING OR YARN COLOR CHECKER: BRETT 01/11/19 1223 RPT#: [id number] DC DATE: STATUS: ADM IN [facility] [address] [place] [address] END OF REPORT
--- NOTE | 2019-01-11 12:59 | MORECARE ---
CASE MANAGEMENT DISCHARGE SUMMARY PATIENT: TY SAUNDERS UNIT: [id number] ADM DATE: 01/08/19 AGE: 88 : 32 SEX: M ROOM/BED: D.[facility] AUTHOR: LUCINDA,DOC PHYSICIAN: REFERRING PHYSICIAN: JANINA ORTIZ MD DATE OF SERVICE: 01/11/19 Discharge Plan Patient Name: TY SAUNDERS Facility: [facility]:[place] : 1930 Planned Disposition: Home Anticipated Discharge Date: Discharge Date: Expected LOS: Initial Reviewer: [email or web address] Initial Review Date: 01/09/2019 Generated: 01/11/19 1:59 pm Comments DCP- Discharge Planning Updated by [email or web address]: Joselin Lam on 01/11/19 11:[address] CM RECIEVED ORDER TO CONTACT PATIENTS PCP FOR HOME HEALTH / PHYSICAL THERAPY. NOTIFIED DR. SVETA MCLAUGHLIN OFFICE AND SPOKE WITH CARE CORDINATOR. SHE STATED THAT THE PATIENT WOULD HAVE TO BE SEEN BY MD AND AN APPOINTMENT WAS SET UP FOR 01/16/19 @ 3:30. ANSELMO FORM SIGNED PER PATIENT FOR [facility] [phone]. CALLED AND SPOKE WITH ANDREW EXPLAINED SITUATION AND FAXED OVER RECORDS. ANDREW STATED THAT SHE WOULD CONTACT [facility] OFFICE TO SEE IF THEY COULD POSSIBLY SEE PATIENT PRIOR TO APPOINTMENT. [facility] WILL CONTACT PATIENT AT HOME AND LET HIM KNOW WHEN THEY CAN START SERVICES. DERREK FAXED RECORDS TO ANDREW AT [facility]. [facility] EXPLAINED AND SIGNED 01/11/19 @ 8631. CM WILL CONTINUE TO FOLLOW AND ASSIST NEEDED WITH DISCHARGE PLANNING/ NEEDS. DCP- Discharge Planning Updated by [id number]: Joselin Lam on 01/09/19 6:[address] Patient Name: TY SAUNDERS Admission Status: Elective Accout number: [id number] Admission Date: 01-08-2019 : 1930 Admission Diagnosis: Attending: JANINA ORTIZ Current LOS: 1 Anticipated DC Date: Planned Disposition: Home Primary Insurance: MEDICARE A & B Discharge Planning Comments: CM met with patient and spouse at bedside. Patient states he lives at home with his Savanah. Patient plans to return to his home upon discharge. Spouse states he has a walker, lift chair and grab bars in bathroom. He also denies any HH services prior to admission. Patient denies any discharge needs at this time. Patient may need walk test if still requiring 02. CM will continue to follow and assist as needed with discharge planning / needs. Sewer Hand: Joselin Lam DCPIA - Discharge Planning Initial Assessment Updated by [email or web address]: Joselin Lam on 01/09/19 7:03 pm * Is the patient Alert and Oriented? Yes * How many steps to enter\exit or inside your home? * PCP SVETA PANTOJA * Pharmacy [facility] * Preadmission Environment Home with Family * ADLs Independent * Other Equipment WALKER WITH SEAT, LIFT CHAIR, HANDBAR IN SHOWER * List name and contact numbers for known caregivers / representatives who currently or will assist patient after discharge: SAVANAH SAUNDERS - SPOUSE- [phone], * Verbal permission to speak to the caregivers and representatives has been obtained from the patient. Yes * Community resources currently utilized None * Additional services required to return to the preadmission environment? No * Can the patient safely return to the preadmission environment? Yes * Has this patient been hospitalized within the prior 30 days at any hospital? No Coverage Notice Reviewer: [id number] - Joselin Lam Notice Issued Date-Time: 01/11/2019 12:44 Notice Type: Notice Delivered To: Patient Relationship to Patient: Self Property Claims Adjuster Name: Delivery Method: HAND - Hand Delivered Niki Days: Prior Verbal Notification: Recipient Understood Notice: Yes Recipient Signature: Yes Med Rec Note Co-signed by Attending: Coverage Notice Comment: Last DP export: 01/11/19 11:23 a Patient Name: TY SAUNDERS Page 72746 at 1259 All edits/amendments must be made on the electronic document DICTATION DATE: 01/11/19 1251 SAP BASIS ADMINISTRATOR: BRETT 01/11/19 1256 RPT#: [id number] [place] DATE: STATUS: ADM IN [facility] [address] [place] [address] END OF REPORT
--- NOTE | 2019-01-11 13:07 | NUR ---
DC'D LEFT SC CVL WITH TIP INTACT. NO BLEEDING
--- NOTE | 2019-01-11 13:30 | NUR ---
DISCHARGE INSTRUCTIONS WENT OVER WITH THE PT. NO QUESTIONS AT THIS TIME. VSS. PT LEFT WITH ALL BELONINGS ACCOUNTED FOR. LEFT WITH AND THE DRIVING THE CAR. NO S/SX OF DISTRESS/DISCOMFORT NOTED.
--- NOTE | 2019-01-11 14:17 | MORECARE ---
CASE MANAGEMENT DISCHARGE SUMMARY PATIENT: TY SAUNDERS UNIT: [id number] ADM DATE: 01/08/19 AGE: 88 : 32 SEX: M ROOM/BED: D[facility] AUTHOR: LUCINDA,DOC PHYSICIAN: REFERRING PHYSICIAN: JANINA ORTIZ MD DATE OF SERVICE: 01/11/19 Discharge Plan Patient Name: TY SAUNDERS Facility: [facility]:[place] : 1930 Planned Disposition: Home Anticipated Discharge Date: Discharge Date: 01/11/2019 Expected LOS: Initial Reviewer: [email or web address] Initial Review Date: 01/09/2019 Generated: 01/11/19 3:17 pm Comments DCP- Discharge Planning Updated by [id number]: Joselin Lam on 01/11/19 11:[address] CM RECIEVED ORDER TO CONTACT PATIENTS PCP FOR HOME HEALTH / PHYSICAL THERAPY. DERREK NOTIFIED DR. SVETA MCLAUGHLIN OFFICE AND SPOKE WITH CARE CORDINATOR. SHE STATED THAT THE PATIENT WOULD HAVE TO BE SEEN BY MD AND AN APPOINTMENT WAS SET UP FOR 01/16/19 @ 3:30. ANSELMO FORM SIGNED PER PATIENT FOR [facility] [phone]. DERREK CALLED AND SPOKE WITH ANDREW EXPLAINED SITUATION AND FAXED OVER RECORDS. ANDREW STATED THAT SHE WOULD CONTACT [facility] OFFICE TO SEE IF THEY COULD POSSIBLY SEE PATIENT PRIOR TO APPOINTMENT. [facility] WILL CONTACT PATIENT AT HOME AND LET HIM KNOW WHEN THEY CAN START SERVICES. DERREK FAXED RECORDS TO ANDREW AT [facility]. [facility] EXPLAINED AND SIGNED 01/11/19 @ 9622. CM WILL CONTINUE TO FOLLOW AND ASSIST NEEDED WITH DISCHARGE PLANNING/ NEEDS. DCP- Discharge Planning Updated by [email or web address]: Joselin Lam on 01/09/19 6:[address] Patient Name: TY SAUNDERS Admission Status: Elective Accout number: [id number] Admission Date: 01-08-2019 : 1930 Admission Diagnosis: Attending: JANINA ORTIZ Current LOS: 1 Anticipated DC Date: Planned Disposition: Home Primary Insurance: MEDICARE A & B Discharge Planning Comments: CM met with patient and spouse at bedside. Patient states he lives at home with his Savanah. Patient plans to return to his home upon discharge. Spouse states he has a walker, lift chair and grab bars in bathroom. He also denies any HH services prior to admission. Patient denies any discharge needs at this time. Patient may need walk test if still requiring 02. CM will continue to follow and assist as needed with discharge planning / needs. Salon Receptionist: Joselin Lam DCPIA - Discharge Planning Initial Assessment Updated by [email or web address]: Joselin Lam on 01/09/19 7:03 pm * Is the patient Alert and Oriented? Yes * How many steps to enter\exit or inside your home? * PCP SVETA PANTOJA * Pharmacy [facility] * Preadmission Environment Home with Family * ADLs Independent * Other Equipment WALKER WITH SEAT, LIFT CHAIR, HANDBAR IN SHOWER * List name and contact numbers for known caregivers / representatives who currently or will assist patient after discharge: SAVANAH SAUNDERS - SPOUSE- [phone], * Verbal permission to speak to the caregivers and representatives has been obtained from the patient. Yes * Community resources currently utilized None * Additional services required to return to the preadmission environment? No * Can the patient safely return to the preadmission environment? Yes * Has this patient been hospitalized within the prior 30 days at any hospital? No Coverage Notice Reviewer: [id number] - Joselin Lam Notice Issued Date-Time: 01/11/2019 12:44 Notice Type: Notice Delivered To: Patient Relationship to Patient: Self Industrial Specialist Name: Delivery Method: HAND - Hand Delivered Niki Days: Prior Verbal Notification: Recipient Understood Notice: Yes Recipient Signature: Yes Med Rec Note Co-signed by Attending: Coverage Notice Comment: Last DP export: 01/11/19 11:59 a Patient Name: TY SAUNDERS Page 22640 at 1417 All edits/amendments must be made on the electronic document DICTATION DATE: 01/11/191415 RESEARCH CONTRACTS SUPERVISOR: BRETT 01/11/191415 RPT#: [id number] DC DATE:01/11/19 STATUS: DIS IN [facility] [address] [place] [address] END OF REPORT
--- NOTE | 2019-01-12 10:18 | OP ---
PATIENT NAME: TY SAUNDERS MEDICAL RECORD: [id number] :[birth year] LOCATION:D.[facility] [id number] ADMISSION DATE:01/08/19 SURGEON: PÉREZ ORTIZ MD DATE OF OPERATION: 01/08/2019 SURGEON: Pérez Ortiz MD RETAIL MARKETING COORDINATOR: Aura. ANESTHESIA: General endotracheal, Dr. Dominguez. OPERATIONS PERFORMED: 1. Endovascular stent repair of the abdominal aortic aneurysm. 2. Placement of the aortobiiliac graft, 48195. 3. Open exposure of bilateral femoral arteries, 32468-02. 4. Repair of lower extremity artery bilaterally, 45469-57. PREOPERATIVE DIAGNOSIS: Expanding abdominal aortic aneurysm. POSTOPERATIVE DIAGNOSIS: Expanding abdominal aortic aneurysm. INDICATION FOR OPERATION: Expanding aortic aneurysm. FINDINGS OF THE OPERATION: Large abdominal aortic aneurysm, post-repair arteriogram demonstrates no endoleak and good position. ESTIMATED BLOOD LOSS: Less than 150 mL. CONTRAST: 90 mL. FLUOROSCOPY TIME: [address] Chavarria participated throughout the procedure with opening access catheter manipulations as well as assisting in closure of the femoral arteries bilaterally. DESCRIPTION OF PROCEDURE: After informed consent, adequate preoperative medication evaluation, the patient was brought to the operating room, placed on the table in the supine position. After induction of general endotracheal anesthesia and application of appropriate monitoring devices, the chest, abdomen, and both legs were prepped and draped in sterile field, utilizing Betadine scrub, alcohol, and Betadine solution. A Betadine-impregnated drape was also used. Bilateral oblique incisions were made above the inguinal ligament. Dissection carried down the fascia. Hemostasis maintained with electrocautery. The inguinal ligament was elevated bilaterally and the common femoral arteries and distal iliac arteries were dissected free of surrounding structures. The branches were encircled with vessel loops. The patient was given a calculated dose of heparin. Bilateral micropuncture technique was used to access the proximal femoral arteries bilaterally and exchange made for a 7-Spanish sheath on the contralateral side, left. A pigtail catheter was placed above the renal arteries bilaterally and then aortogram performed. The measurements were made. The patient had exchanged for a stiff wire on the right and the main body placed into the aorta, near the renal arteries. An additional aortogram was performed on magnification mode and the OPERATIVE REPORT [id number] TY SAUNDERS main body deployed. The contralateral limb was then cannulated from the left and the extension placed after a retrograde sheath injection on the left. This was deployed. The ipsilateral limb was then deployed. Exchange was made for a 14-Spanish sheath bilaterally and Reliant balloons used to dilate the graft. An aortogram was then performed that demonstrated good position and no endoleaks. The femoral arteries were then repaired primarily utilizing interrupted 6-0 Prolene sutures. The wounds were irrigated with copious amounts of antibiotic solution and normal saline. The patient was given a calculated dose of protamine to reverse the heparin. Instrument count and sponge counts were correct times 2. The wound was closed in layers utilizing 2-0 Vicryl on deep subcutaneous tissue, 3-0 Vicryl on the superficial subcutaneous tissue, 5-0 subcuticular Monocryl on the skin. Sterile dressings were applied. The patient tolerated the procedure well and was transferred to the CV ICU in satisfactory condition. TRANSINT:[id number] Voice Confirmation ID: [id number] DOCUMENT ID: [id number] PÉREZ ORTIZ MD at 1018 CC: [id number] DICTATION DATE: 01/08/19 1129 PHOTOCOPYING EQUIPMENT REPAIRER: 01/08/19 1204 DIS IN 01/11/19 [facility] [address] [place] [address]
== END 2019-01-11 13:53 | disposition home or self-care (01) | DRG 269 ==
LOC: D.CVICU 01-08 05:00 → D.SDCHOLD 01-08 05:00 → D.CVICU 01-08 10:43
PROVIDERS: ADMIT Internal Medicine Cardiovascular Disease
PROC: 04V03DZ Restriction of Abdominal Aorta with Intraluminal Device, Percutaneous Approach (ICD-10-PCS; principal; 2019-01-08 07:30)
DX: I71.4 Abdominal aortic aneurysm, without rupture (principal); I50.42 Chronic combined systolic (congestive) and diastolic (congestive) heart failure; E11.9 Type 2 diabetes mellitus without complications; J44.9 Chronic obstructive pulmonary disease, unspecified; R53.81 Other malaise; M06.9 Rheumatoid arthritis, unspecified; E78.5 Hyperlipidemia, unspecified; D64.9 Anemia, unspecified; I25.10 Atherosclerotic heart disease of native coronary artery without angina pectoris; I11.0 Hypertensive heart disease with heart failure

== ENCOUNTER 2019-02-02 07:37 | Inpatient (IN) | payer MEDICARE, OTHER ==
[2019-02-02] VITALS (7 sets, daily range): BP systolic 133–165; BP diastolic 43–65; BMI 20.1
[~2019-02-02] VITALS: Ht 179.1 cm; Wt 109.8 kg
[~2019-02-02 07:37] MED LIST changes: +ASPIRIN EC81 M1 PO
--- NOTE | 2019-02-02 12:37 | NUR ---
1st unit prbc humg vs stable will continue to monitor
--- NOTE | 2019-02-02 16:27 | NUR ---
IN ROOM. 2ND UNIT OF BLOOD RUNNING. NO COMPLAINTS AT THIS TIME. WOULD LIKE HOME MEDS RESTARTED. PUT IN A CALL TO DR [facility]
--- NOTE | 2019-02-02 16:48 | NUR ---
PATIENT COMPLAINING OF 2 "BITE MELENDEZ". HAD ONE EARLIER. PUT A CALL INTO DR KIM TO GET MAURA DEVLIN
--- NOTE | 2019-02-02 17:08 | NUR ---
PATIENT SIGNED REFUSAL OF BED ALARM ALONG WITH HIS . IN CHART
--- NOTE | 2019-02-02 19:30 | NUR ---
PT SITTING UP IN BEDSIDE CHAIR. NO SIGNS OF DISTRESS, ALERT AND ORIENTED. IV LEFT AC INFUSING NS @ 40 AND PROTONIX @ 10. PT USES WALKER W/ ASSISTANCE TO GET UP TO BATHROOM. DENIES NEEDS AT THIS TIME. CL IN REACH, WILL CONTINUE TO MONITOR
[2019-02-03] VITALS (8 sets, daily range): BP systolic 147–167; BP diastolic 45–69; Ht 179.1 cm; Wt 109.8 kg
--- NOTE | 2019-02-03 04:00 | NUR ---
PT REFUSED MORNING VITALS STATING HE WAS JUST FINALLY GETTING TO SLEEP
[2019-02-03 06:39] LABS: BASOPHILS 0.5 % (0-2); EOSINOPHILS 8.5 % (0-7); HEMATOCRIT 33.2 % (42.0-54.0); HEMOGLOBIN 10.4 g/dL (13.5-17.5); IMMATURE GRANULOCYTES 0.2 % (0-5); LYMPHOCYTES 19.8 % (15-50); MCH 29.2 pg (26.0-34.0); MCHC 31.3 g/dL (31.0-37.0); MCV 93.3 fL (80.0-100.0); MEAN PLATELET VOLUME 9.6 fL (7.4-10.4); MONOCYTES 9.8 % (2-11); NEUTROPHILS 61.2 % (40-80); RBC 3.56 10x6/uL (4.20-6.10); RDW 16.4 % (11.5-14.5); WBC 5.5 10x3/uL (4.8-10.8)
[2019-02-03 06:54] LABS: PLATELET COUNT 174 10x3/uL (130-400)
[2019-02-03 07:10] LABS: APTT 27.9 SECONDS (22.8-39.4); INR 1.05 (0.85-1.17); PROTIME 13.2 SECONDS (11.6-15.0)
[2019-02-03 07:28] LABS: ALBUMIN 2.6 g/dL (3.4-5.0); ALKALINE PHOSPHATASE 94 U/L (46-116); ALT (SGPT) 17 U/L (10-68); BILIRUBIN - TOTAL 0.29 mg/dL (0.2-1.3); CALC OSMOLALITY 277 mosm/kg (275-300); CALCIUM 7.8 mg/dL (8.5-10.1); CARBON DIOXIDE 27.1 mmol/L (21.0-32.0); CHLORIDE - SERUM 103 mmol/L (98-107); GLUCOSE 125 mg/dL (74-106); POTASSIUM - SERUM 4.8 mmol/L (3.5-5.1); PROTEIN - SERUM 6.7 g/dL (6.4-8.2); SODIUM 138 mmol/L (136-145); UREA NITROGEN 16 mg/dL (7-18); eGFR NON AFRICAN AMERICAN 75 mL/min (90-120)
--- NOTE | 2019-02-03 10:11 | NUR ---
PATIENT CO SEVERE PAIN. ADAMENT ABOUT GETTING OUT OF BED. WANTS TO LEAVE DOESN'T WANT TO STAY ANOTHER NIGHT.
--- NOTE | 2019-02-03 19:45 | NUR ---
PT SITTING UP IN BEDSIDE CHAIR, NO SIGNS OF DISTRESS. ALERT AND ORIENTED. IV LEFT AC INFUSING NS @ 40 W/ PROTONIX @ 10. DENIES NEEDS AT THIS TIME. CL IN REACH, WILL CONTINUE TO MONITOR
--- NOTE | 2019-02-03 23:20 | NUR ---
PT STATES GENERALIZED PAIN "FROM ARTHRITIS" 06/30. REQUESTED AND GIVEN TYLENOL AND TRAMADOL ORDERED. PT STATES HE TAKES BOTH TOGETHER AT HOME PRN. NO OTHER NEEDS AT THIS TIME. CL IN REACH, WILL CONTINUE TO MONITOR
[2019-02-04] VITALS: BP 157/69
--- NOTE | 2019-02-04 03:30 | NUR ---
PT REFUSED VITALS STATING HE DID NOT WANT TO BE DISTURBED BECAUSE HE IS HAVING A HARD TIME SLEEPING. WILL CONT TO MONITOR
--- NOTE | 2019-02-04 04:23 | NUR ---
UPON ENTERING PT ROOM, PT IV HAD COME OUT W/ CATHETER INTACT WHILE PT SLEEPING. BLOOD AND IV FLUIDS ALL OVER PT GOWN AND SHEETS. CHANGED PT GOWN AND LINEN. PT REFUSED TO HAVE IV RESITED UNTIL FINDING OUT IF HE IS BEING DISCHAGED THIS AM OR NOT. WILL CONTINUE TO MONITOR
[2019-02-04 05:02] LABS: BASOPHILS 0.3 % (0-2); EOSINOPHILS 8.9 % (0-7); HEMATOCRIT 30.5 % (42.0-54.0); HEMOGLOBIN 9.7 g/dL (13.5-17.5); IMMATURE GRANULOCYTES 0.2 % (0-5); LYMPHOCYTES 23.9 % (15-50); MCH 29.6 pg (26.0-34.0); MCHC 31.8 g/dL (31.0-37.0); MEAN PLATELET VOLUME 9.5 fL (7.4-10.4); MONOCYTES 13.6 % (2-11); NEUTROPHILS 53.1 % (40-80); PLATELET COUNT 161 10x3/uL (130-400); RBC 3.28 10x6/uL (4.20-6.10); RDW 16.1 % (11.5-14.5); WBC 6.3 10x3/uL (4.8-10.8)
[2019-02-04 10:10] VITALS: BP 186/62
== END 2019-02-04 10:43 | disposition home or self-care (01) | DRG 379 ==
LOC: OBSVTIME 07:37 → D.MS 07:37
PROVIDERS: Internal Medicine Gastroenterology; ADMIT Internal Medicine Hematology & Oncology; ATTEND Internal Medicine Hematology & Oncology
PROC: 0W3P8ZZ Control Bleeding in Gastrointestinal Tract, Via Natural or Artificial Opening Endoscopic (ICD-10-PCS; principal; 2019-02-03 08:00)
DX: K55.21 Angiodysplasia of colon with hemorrhage (principal); K92.2 Gastrointestinal hemorrhage, unspecified; I25.10 Atherosclerotic heart disease of native coronary artery without angina pectoris; J44.9 Chronic obstructive pulmonary disease, unspecified; E11.9 Type 2 diabetes mellitus without complications; E11.42 Type 2 diabetes mellitus with diabetic polyneuropathy; D50.0 Iron deficiency anemia secondary to blood loss (chronic)

== ENCOUNTER 2019-09-17 11:37 | Day surgery (SDC) | payer MEDICARE, OTHER ==
[~2019-09-17] VITALS: Ht 179.1 cm; Wt 111.8 kg
[2019-09-17 11:56] LABS: ANION GAP 8.7 mmol/L (8-16); CALCIUM 8.2 mg/dL (8.5-10.1); CARBON DIOXIDE 34.1 mmol/L (21.0-32.0); CREATININE - SERUM 1.4 mg/dL (0.6-1.3); POTASSIUM - SERUM 4.8 mmol/L (3.5-5.1)
[2019-09-17 11:58] LABS: BASOPHILS 0.1 % (0-2); HEMATOCRIT 29.7 % (42.0-54.0); HEMOGLOBIN 9.2 g/dL (13.5-17.5); IMMATURE GRANULOCYTES 0.1 % (0-5); LYMPHOCYTES 20.3 % (15-50); MCH 29.9 pg (26.0-34.0); MCV 96.4 fL (80.0-100.0); MONOCYTES 11.9 % (2-11); NEUTROPHILS 62.6 % (40-80); PLATELET COUNT 199 10x3/uL (130-400); RBC 3.08 10x6/uL (4.20-6.10); RDW 13.4 % (11.5-14.5)
[2019-09-17 13:35] VITALS: BP 160/64; Ht 179.1 cm; Wt 111.8 kg
--- NOTE | 2019-09-17 15:47 | NUR ---
DC INSTRUCTIONS GIVEN TO PT/FAMILY. STATE UNDERSTANDING. DC'D IV CATH FULLY INTACT.
--- NOTE | 2019-09-17 16:00 | NUR ---
PT LEFT UNIT VIA WC AT 1604
--- NOTE | 2019-09-26 07:36 | OP ---
PATIENT NAME: TY SAUNDERS MEDICAL RECORD: [id number] :34 LOCATION:D.OPS ADMISSION DATE: SURGEON: OSMAN GLEZ DO DATE OF OPERATION: 09/17/2019 PROCEDURE: EGD with biopsies. INDICATIONS FOR PROCEDURE: Anemia, heartburn, GERD, melena. SCOPE: Olympus video gastroscope. MEDICATIONS: Propofol 80 mg IV per anesthesia. ESTIMATED BLOOD LOSS: Minimal. COMPLICATIONS: None. FINDINGS: Informed consent was given. The patient was made comfortable with the above medication. After reaching an adequate level of sedation by slow IV push, the patient was placed on his left side. The endoscope was advanced under direct visualization through the mouth to the second portion of the duodenum with ease. The entire esophagus appeared normal. At the GE junction, there were minor changes consistent with LA class A reflux-induced esophagitis. The endoscope was advanced beyond the GE junction into the stomach and retroflexed to view the cardia, where a diminutive sliding hiatal hernia was visualized. The fundus appeared normal. Throughout the cardia, body of the stomach, antrum, and prepyloric regions, there were areas of erythema and granularity and some friability consistent with gastritis. There was no active bleeding or signs of recent bleeding. Random cold forceps biopsies were taken from the antrum to submit for histopathology and to rule out the presence of H. pylori. The endoscope was advanced beyond the pylorus into the duodenum, which appeared normal down to the second portion. Random cold forceps biopsies were taken to submit for histopathology. The endoscope was then withdrawn from the patient. The patient tolerated the procedure well and there were no complications. IMPRESSION: 1. LA class A reflux-induced esophagitis. 2. Diminutive sliding hiatal hernia. 3. Gastritis. PLAN AND RECOMMENDATIONS: 1. Discharge home when recovery parameters are met. 2. Follow up biopsy specimen results. 3. GERD diet and reflux precautions. 4. Continue current medications including pantoprazole 40 mg daily. 5. Consider video capsule endoscopy to evaluate the entire small intestine. This equipment is currently not available here at [place], so this would require a referral for this evaluation. 6. GI is available as needed moving forward for continued workup of anemia. TRANSINT:[id number] Voice Confirmation ID: [id number] DOCUMENT ID: [id number] OPERATIVE REPORT [id number] TY SAUNDERS OSMAN GLEZ DO at 0736 CC: [id number] DICTATION DATE: 09/17/19 1522 CURER FOAM RUBBER: 09/17/19 1650 [facility] 09/17/19 [place] [place] [address]
== END 2019-09-17 16:04 | disposition home or self-care (01) ==
LOC: D.OPS 11:37
PROVIDERS: Anesthesiology; ATTEND Internal Medicine Gastroenterology
DX: D64.9 Anemia, unspecified (principal); R12 Heartburn; K92.1 Melena; K21.0 Gastro-esophageal reflux disease with esophagitis; K29.70 Gastritis, unspecified, without bleeding; K44.9 Diaphragmatic hernia without obstruction or gangrene